=== PATIENT | female | born 1990 | race Caucasian/White ===

== ENCOUNTER 2018-06-30 09:33 | Outpatient (CLI) | payer OTHER ==
[~2018-06-30 09:33] MED LIST: IBUP-1222 PO; IBUP100T4; OXYC-302 PO
[2018-06-30] MEDS ORDERED: ACET-1600 PO (10:34)
[2018-06-30] MEDS ORDERED: FLUO10CA13 PO (10:34)
[2018-06-30] MEDS ORDERED: BUSP5TAB2 PO (10:34)
== END 2018-06-30 23:59 | disposition home or self-care (01) ==
LOC: STAR 09:33
PROVIDERS: ATTEND Obstetrics & Gynecology
DX: Z02.9 Encounter for administrative examinations, unspecified (principal)

== ENCOUNTER 2018-07-03 05:34 | Day surgery (SDC) | payer OTHER ==
[2018-06-30 10:39] LABS: MEAN CORPUSCULAR HEMOGLOBIN 31.1 pg (27.0-34.8); MEAN CORPUSCULAR HGB CONC 34.3 g/dL (32.4-35.8); MEAN CORPUSCULAR VOLUME 90.7 fL (80-100); MEAN PLATELET VOLUME 7.9 fL (7.4-10.4); PLATELET COUNT 311 x10^3/uL (130-400); RED CELL DISTRIBUTION WIDTH 12.9 % (9.6-15.2)
[2018-06-30 10:44] LABS: BASOPHILS # (AUTO) 0.03 x10^3/uL (0-0.1); BASOPHILS % (AUTO) 0 % (0-1); EOSINOPHILS # (AUTO) 0.17 x10^3/uL (0-0.4); EOSINOPHILS % (AUTO) 2 % (1-7); LYMPHOCYTES # (AUTO) 2.82 x10^3/uL (1-3.4); LYMPHOCYTES % (AUTO) 30 % (22-44); MONOCYTES # (AUTO) 0.44 x10^3/uL (0.2-0.8); MONOCYTES % (AUTO) 5 % (2-9); NEUTROPHILS # (AUTO) 5.86 x10^3/uL (1.8-6.8); NEUTROPHILS % (AUTO) 63 % (42-75)
[2018-06-30 10:46] LABS: MD NO
[2018-06-30 10:51] LABS: ANION GAP 3 mmol/L (5-15); CHLORIDE 108 mmol/L (98-107); CREATININE 0.85 mg/dL (0.55-1.02)
[~2018-07-03] VITALS: Ht 167.6 cm; Wt 91.3 kg
[~2018-07-03 05:34] MED LIST changes: +ACET-1600 PO; +BUSP5TAB2 PO; +FLUO10CA13 PO
[2018-07-03 06:14] VITALS: BP 133/93
[2018-07-03] MEDS ORDERED: LACTATED RINGERS 1,000 ML IV SCH (06:18)
[2018-07-03] MEDS ORDERED: BUPIVACAINE/PF 0.25% ONE (06:23)
[2018-07-03] MEDS ORDERED: EPINEPHRINE 1 MG/ML, 1ML ONE (06:24)
[2018-07-03] MEDS ORDERED: FLUORESCEIN SODIUM 500 MG/5 ML ONE (06:24)
[2018-07-03] MEDS ORDERED: ACETAMINOPHEN 500 MG TABLET PO ONE (07:00)
[2018-07-03] MEDS ORDERED: MIDAZOLAM 1 MG/ML, 2ML ONE (07:00)
[2018-07-03] MEDS ORDERED: GABAPENTIN 300 MG CAPSULE PO ONE (07:00)
[2018-07-03] MEDS ORDERED: FENTANYL PF 250 MCG/5ML ONE ×2 (07:01→08:08)
[2018-07-03] MEDS ORDERED: hydrALAzine 20 MG/ML, 1ML IV PRN (07:30)
[2018-07-03] MEDS ORDERED: ONDANSETRON 2MG/ML, 2ML IV PRN (07:30)
[2018-07-03] MEDS ORDERED: HALOPERIDOL 5 MG/ML IV PRN (07:30)
[2018-07-03] MEDS ORDERED: PROMETHAZINE 25 MG/ML, 1ML IM PRN ×2 (07:30)
[2018-07-03] MEDS ORDERED: LABETALOL 5MG/ML, 20ML IV PRN (07:30)
[2018-07-03] MEDS ORDERED: MEPERIDINE/PF 25MG/0.5ML IVPush PRN (07:30)
[2018-07-03] MEDS ORDERED: PROMETHAZINE 25 MG/ML, 1ML IV PRN (07:30)
[2018-07-03] MEDS ORDERED: MORPHINE SULFATE 4 MG/ML, 1ML IVPush PRN (07:30)
[2018-07-03] MEDS ORDERED: ONDANSETRON ODT 8 MG PO PRN (07:30)
[2018-07-03] MEDS ORDERED: PROMETHAZINE 25 MG SUPP PR PRN (07:30)
[2018-07-03] MEDS ORDERED: PROMETHAZINE 12.5 MG SUPP PR PRN (07:30)
[2018-07-03] MEDS ORDERED: FENTANYL PF 100 MCG/2ML ONE (09:03)
[2018-07-03] MEDS ORDERED: OXYcodone 5 MG/5 ML ORAL.SOL UDC ONE (09:03)
[2018-07-03] MEDS: FENTANYL PF 100 MCG/2ML IV PRN ×2 (09:05→09:10)
[2018-07-03] MEDS: OXYcodone 5 MG/5 ML ORAL.SOL UDC PO PRN ×2 (09:06→13:40)
[2018-07-03] MEDS ORDERED: HYDROmorphone 1 MG/ML, 1ML ONE (09:15)
[2018-07-03] MEDS: HYDROmorphone 2 MG/ML, 1ML IVPush PRN ×2 (09:17→09:24)
[2018-07-03] MEDS ORDERED: morphine SULFATE 10 MG/ML, 1ML ONE (11:40)
[2018-07-03] MEDS ORDERED: morphine SULFATE 10 MG/ML, 1ML IVPush PRN (12:00)
[2018-07-03] MEDS ORDERED: ACETAMINOPHEN 650 MG SUPP PR PRN (12:00)
[2018-07-03] MEDS ORDERED: SENNA/DOCUSATE TABLET PO SCH (12:00)
[2018-07-03] MEDS ORDERED: ZOLPIDEM 5MG TABLET PO PRN (12:00)
[2018-07-03] MEDS ORDERED: OXYcodone 5 MG/5 ML ORAL.SOL UDC PO PRN (12:00)
[2018-07-03] MEDS ORDERED: ACETAMINOPHEN 325 MG TABLET PO PRN (12:00)
[2018-07-03] MEDS ORDERED: KETOROLAC 30 MG/1 ML IVPush PRN (12:00)
[2018-07-03 13:14] LABS: MEAN CORPUSCULAR HEMOGLOBIN 30.7 pg (27.0-34.8); MEAN CORPUSCULAR HGB CONC 33.9 g/dL (32.4-35.8); MEAN CORPUSCULAR VOLUME 90.6 fL (80-100); MEAN PLATELET VOLUME 8.2 fL (7.4-10.4); PLATELET COUNT 292 x10^3/uL (130-400); RED BLOOD COUNT 4.68 x10^6/uL (3.82-5.3); RED CELL DISTRIBUTION WIDTH 12.7 % (9.6-15.2)
[2018-07-03 13:21] LABS: ANION GAP 4 mmol/L (5-15); CALCIUM 8.8 mg/dL (8.5-10.1); CHLORIDE 109 mmol/L (98-107)
[2018-07-03 13:26] LABS: BASOPHILS % (AUTO) 0 % (0-1); EOSINOPHILS # (AUTO) 0.01 x10^3/uL (0-0.4); EOSINOPHILS % (AUTO) 0 % (1-7); LYMPHOCYTES # (AUTO) 1.11 x10^3/uL (1-3.4); LYMPHOCYTES % (AUTO) 7 % (22-44); MD SCAN; MONOCYTES # (AUTO) 0.18 x10^3/uL (0.2-0.8); MONOCYTES % (AUTO) 1 % (2-9); NEUTROPHILS % (AUTO) 92 % (42-75)
[2018-07-03] MEDS ORDERED: NEOSTIGMINE 1 MG/ML, 10ML ONE (15:36)
[2018-07-03] MEDS ORDERED: PROPOFOL 10 MG/ML, 20ML ONE (15:36)
[2018-07-03] MEDS ORDERED: GLYCOPYRROLATE 0.2MG/1ML, 5ML ONE (15:36)
[2018-07-03] MEDS ORDERED: DEXAMETHASONE 4 MG/ML, 1ML ONE (15:36)
[2018-07-03] MEDS ORDERED: KETOROLAC 30 MG/1 ML ONE (15:36)
[2018-07-03] MEDS ORDERED: ONDANSETRON 2MG/ML, 2ML ONE (15:36)
[2018-07-03] MEDS ORDERED: ROCURONIUM 10MG/ML,5ML ONE (15:36)
[2018-07-03] MEDS ORDERED: CEFAZOLIN 1,000 MG ONE (15:36)
[2018-07-03] MEDS ORDERED: SIMETHICONE 80 MG CHEW TAB PO SCH (16:00)
[2018-07-03] MEDS ORDERED: IBUPROFEN 600 MG TABLET PO SCH (16:00)
[2018-07-03] MEDS ORDERED: DOCUSATE 100 MG CAPSULE PO SCH (21:00)
== END 2018-07-03 14:40 | disposition home or self-care (01) ==
LOC: OUT 05:34 → EDSTATUS 07:30 → OUT 14:40
PROVIDERS: ATTEND Obstetrics & Gynecology
DX: N72 Inflammatory disease of cervix uteri (principal); N92.0 Excessive and frequent menstruation with regular cycle; F41.9 Anxiety disorder, unspecified; N94.6 Dysmenorrhea, unspecified; Z72.0 Tobacco use; Z98.890 Other specified postprocedural states; Z88.0 Allergy status to penicillin; Z88.8 Allergy status to other drugs, medicaments and biological substances
CPT/HCPCS: 36415; 58262; 80048; 84703; 85025; 86850; 86900; 88307; J0171; J0690; J1100; J1170; J1885; J2250; J2270; J2405; J2704; J2710; J3010; J3490; J7120